=== PATIENT | male | born 1940 | race African-American/Black ===

== ENCOUNTER 2022-09-06 15:24 | Emergency (ER) | payer MEDICARE, MEDICAID ==
[~2022-09-06] VITALS: Ht 182.9 cm; Wt 66.0 kg
[~2022-09-06 15:24] MED LIST: ABAC1TAB3; BICT1TAB PO; DARU800T; HYDR-3513; LEVO125T8 PO; ROSU20TA2; TAMS-11 PO
[2022-09-06 23:52] VITALS: BP 144/75
== END 2022-09-06 23:59 | disposition home or self-care (01) ==
LOC: ER 17:21
DX: K94.00 Colostomy complication, unspecified (principal); Z86.39 Personal history of other endocrine, nutritional and metabolic disease
CPT/HCPCS: 99281

== ENCOUNTER 2022-10-10 11:08 | Emergency (ER) | payer BC, MEDICAID ==
[~2022-10-10] VITALS: Ht 172.7 cm; Wt 78.0 kg
[2022-10-10 11:13] VITALS: BP 135/65
== END 2022-10-10 12:34 | disposition home or self-care (01) ==
LOC: ER 11:08
DX: Z48.00 Encounter for change or removal of nonsurgical wound dressing (principal)
CPT/HCPCS: 99281

== ENCOUNTER 2024-12-22 11:12 | Emergency (ER) | payer BC, MEDICAID ==
[~2024-12-22] VITALS: Ht 177.8 cm; Wt 75.0 kg
[~2024-12-22 11:12] MED LIST changes: -HYDR-3513; -TAMS-11 PO; +TAMS-54 PO
[2024-12-22 11:31] VITALS: O2SAT 96
[2024-12-22] MEDS ORDERED: ACET-2708 MT (13:42)
[2024-12-22] MEDS ORDERED: IBUPROFEN 400MG TABLET PO ONE (14:00)
[2024-12-22 14:11] VITALS: BP 134/92; PULSE 58; RESP 16; TEMP 36.6; O2SAT 98
== END 2024-12-22 14:12 | disposition home or self-care (01) ==
LOC: ER 11:12
DX: M79.672 Pain in left foot (principal); F10.90 Alcohol use, unspecified, uncomplicated; Z79.890 Hormone replacement therapy; Z88.1 Allergy status to other antibiotic agents; Z96.659 Presence of unspecified artificial knee joint; Y90.9 Presence of alcohol in blood, level not specified
CPT/HCPCS: 99283; 73630; A6449